=== PATIENT | male | born 1970 ===

== ENCOUNTER 2017-05-28 22:24 | Emergency (ER) | payer SELFPAY ==
[2017-05-28 23:01] VITALS: BP 147/95
[2017-05-28] MEDS ORDERED: BOOSTRIX IM ONE (23:22)
[2017-05-28] MEDS ORDERED: MOTRIN PO ONE (23:23)
[2017-05-28] MEDS ORDERED: FUL-GLO OP ONE (23:23)
--- NOTE | 2017-05-28 23:26 | Emergency Department Report ---
ED Eye Problem HPI - General Chief complaint: Eye Problems Stated complaint: ACCIDENT AT WORK AFFECT EYE Time Seen by Provider: 05/28/17 23:22 Source: patient Mode of arrival: Ambulatory Limitations: No Limitations - History of Present Illness Initial comments: 46-year-old male past medical history none presents with complaint of right eye pain. 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 Patient states this occurred at about 6 PM. Patient is awake alert and oriented 3 denies any injuries but does state that his right eye is very irritated. Patient speaks [place] which I speak fluently. Does not know his current tetanus status. MD chief complaint: eye pain, eye redness -: This evening Place: work If Injury: direct trauma Eye Symptoms: burning, redness, pain Severity: moderate Severity scale (0 -10): 5 - Related Data Previous Rx's Medication Instructions Recorded Last Taken Type Bacitracin Zinc Oint [Antibiotic 1 applicatio TP BID #1 tube 05/28/17 Unknown Rx Oint] Ibuprofen [Motrin] 600 mg PO Q8H PRN #20 tablet 05/28/17 Unknown Rx Naphazoline HCl/Pheniramine 1 drop OP Q4H PRN #1 drops 05/28/17 Unknown Rx [Naphcon-A Eye Drops] Tobramycin 0.3% [Tobrex] 1 drop OD Q4H #1 bottle 05/28/17 Unknown Rx Allergies Allergy/AdvReac Type Severity Reaction Status Date / Time No Known Allergies Allergy Unverified 05/28/17 22:51 ED Review of Systems ROS: Stated complaint: ACCIDENT AT WORK AFFECT EYE Other details as noted in HPI ED Past Medical Hx - Past Medical History Previous Medical History?: No - Surgical History Past Surgical History?: No - Social History Smoking Status: Never Smoker Substance Use Type: Alcohol - Medications Home Medications: Home Medications Medication Instructions Recorded Confirmed Last Taken Type Bacitracin Zinc Oint [Antibiotic 1 applicatio TP BID #1 tube 05/28/17 Unknown Rx Oint] Ibuprofen [Motrin] 600 mg PO Q8H PRN #20 tablet 05/28/17 Unknown Rx Naphazoline HCl/Pheniramine 1 drop OP Q4H PRN #1 drops 05/28/17 Unknown Rx [Naphcon-A Eye Drops] Tobramycin 0.3% [Tobrex] 1 drop OD Q4H #1 bottle 05/28/17 Unknown Rx ED Physical Exam - General Limitations: No Limitations General appearance: alert, in no apparent distress - Head Head exam: Present: atraumatic, normocephalic - Eye Eye exam: Present: normal appearance, PERRL, EOMI Pupils: Present: normal accommodation - Expanded Eye Exam Expanded Pupils: Regular, Round: Bilateral, Reactive: Bilateral Sclera/Conjunctival: Injection: Right Visual acuity (R) = 20/: 30 Visual acuity (L) = 20/: 40 - ENT ENT exam: Present: mucous membranes moist - Neck Neck exam: Present: normal inspection - Respiratory Respiratory exam: Present: normal lung sounds bilaterally. Absent: respiratory distress - Cardiovascular Cardiovascular Exam: Present: regular rate, normal rhythm. Absent: systolic murmur, diastolic murmur, rubs, gallop - GI/Abdominal GI/Abdominal exam: Present: soft, normal bowel sounds - Rectal Rectal exam: Present: deferred - Extremities Exam Extremities exam: Present: normal inspection - Back Exam Back exam: Present: normal inspection - Neurological Exam Neurological exam: Present: alert, oriented X3 - Psychiatric Psychiatric exam: Present: normal affect, normal mood - Skin Skin exam: Present: warm, dry, intact, normal color. Absent: rash ED Course Vital Signs 05/28/17 05/28/17 22:44 23:33 Temperature 98.6 F Pulse Rate 83 Respiratory 18 18 Rate Blood Pressure 147/95 O2 Sat by Pulse 97 Oximetry ED Medical Decision Making - Medical Decision Making A/P: Corneal abrasion, facial abrasion 1-visible corneal abrasion not overlying the pupil on FS stain. No foreign body no corneal rust ring visualized, eyelids everted. 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 ED Disposition Clinical Impression: Abrasion Corneal abrasion, right Qualifiers: Encounter type: initial encounter Qualified Code(s): S05.01XA - Injury of conjunctiva and corneal abrasion without foreign body, right eye, initial encounter Disposition: TO HOME OR SELFCARE Is pt being admited?: No Does the pt Need Aspirin: No Condition: Stable Instructions: Corneal Abrasion (ED), Abrasion (ED) Prescriptions: Bacitracin Zinc Oint [Antibiotic Oint] 1 applicatio TP BID #1 tube Ibuprofen [Motrin] 600 mg PO Q8H PRN #20 tablet PRN Reason: Pain Naphazoline HCl/Pheniramine [Naphcon-A Eye Drops] 1 drop OP Q4H PRN #1 drops PRN Reason: Dry Eye(S) Tobramycin 0.3% [Tobrex] 1 drop OD Q4H #1 bottle Referrals: LILIA VICTORIA MD [Staff Physician] - 3-5 Days LIZA BLAKE MD [Staff Physician] - 3-5 Days Time of Disposition: 23:39 Print Language: FRENCH
[2017-05-28] MEDS ORDERED: TRIPLE ANTIBIOTIC TP ONE ×2 (23:41)
== END 2017-05-29 00:16 | disposition home or self-care (01) ==
LOC: EDSEX → ED 22:24
DX: S05.01XA Injury of conjunctiva and corneal abrasion without foreign body, right eye, initial encounter (principal); W22.8XXA Striking against or struck by other objects, initial encounter; Y93.89 Activity, other specified; Y99.0 Civilian activity done for income or pay; Y92.69 Other specified industrial and construction area as the place of occurrence of the external cause
CPT/HCPCS: 90471; 90715; A6250